=== PATIENT | female | born 1960 | race Caucasian/White ===

== ENCOUNTER 2020-11-07 20:06 | Emergency (ER) | payer OTHER, SELFPAY ==
[2020-11-07 20:24] VITALS: BP 139/51; PULSE 81; RESP 16; O2SAT 96; BMI 44.3
--- NOTE | 2020-11-07 23:23 | ED.SKABFB ---
HPI - Skin/Abscess/Foreign Bdy General Chief complaint: Skin/Abscess/Foreign Body Stated complaint: leg swelling Time Seen by Provider: 11/07/20 21:39 Source: patient Mode of arrival: ambulatory Limitations: no limitations History of Present Illness MD complaint: rash and lesion Onset (ago): day(s) (1) Location: LLE Severity: similar to previous episodes (feels like when she has had cellulitis in the past) Quality: aching Pain Consistency: constant Relieving factors: none Exacerbating factors: none Context: none Associated symptoms: denies other symptoms Treatments prior to arrival: none Related Data Previous Rx's Medication Instructions Recorded cephalexin 500 mg PO BID 7 Days #14 cap 11/08/20 doxycycline hyclate 100 mg PO BID 7 Days #14 cap 11/08/20 Allergies Allergy/AdvReac Type Severity Reaction Status Date / Time amitriptyline Allergy Unknown Verified 11/07/20 20:31 clonidine Allergy Unknown Verified 11/07/20 20:31 metformin Allergy Unknown Verified 11/07/20 20:31 niacin Allergy Unknown Verified 11/07/20 20:31 [From Niaspan Extended-Release] nortriptyline Allergy Unknown Verified 11/07/20 20:31 Penicillins Allergy Unknown Verified 11/07/20 20:31 sumatriptan [From Imitrex] Allergy Unknown Verified 11/07/20 20:31 tramadol Allergy Unknown Verified 11/07/20 20:31 Review of Systems Review of Systems: Constitutional : No Fever, No Chills ENT/Mouth : No sore throat, No Rhinorrhea Eyes: No Eye Pain, No Swelling, No Redness Cardiovascular : No Chest Pain, No SOB, pos LLE edema Respiratory : No Cough, No Sputum Gastrointestinal : No Nausea, No Vomiting, No Diarrhea, No abdominal Pain Genitourinary : No Dysuria, No Hematuria Musculoskeletal : No joint pain, No Myalgias, No Joint Swelling Skin : No Skin Lesions, positive skin rash Neuro : No Weakness, No Numbness, No Headache Psych : No Anxiety, No Depression Heme/Lymph: No Bruising, No Bleeding,No Lymphadenopathy Endocrine : No Polyuria, No Polydipsia All other systems reviewed and are negative PMFSH Past Medical History Attestation statement: The following information was validated with the patient. Medical History (Updated 11/08/20 @ 02:08 by Sweetie Mcgrath DO) Acute depression Anxiety Cellulitis Diabetes Fibromyalgia GERD (gastroesophageal reflux disease) Necrobiosis lipoidica PAD (peripheral artery disease) Social History Social History (Updated 11/07/20 @ 23:37 by Sweetie Mcgrath DO) Smoking Status: Current every day smoker Advance Directives: No Advance Directives Information Provided: No Physical Exam Vital Signs: Vital Signs: Last Vital Signs Pulse 81 11/07/20 20:24 Resp 16 11/07/20 20:24 BP 139/51 L 11/07/20 20:24 Pulse Ox 96 11/07/20 20:24 Body Mass Index 44.3 Appearance: Alert. Oriented X3. No acute distress. Eyes: Pupils equal, round and reactive to light. ENT: Pharynx normal. Neck: Normal inspection. Neck supple. CVS: Normal heart rate and rhythm. Pulses normal. Respiratory: No respiratory distress. Breath sounds normal. Abdomen: Soft and nontender. Skin: Skin warm and dry. Normal skin color. Normal skin turgor. Extremities: RLE no edema - chronic hyperpigmentation noted around lower part, LLE non pitting edema - 2 large scars noted from the prior necrosis but no open wounds - foot is warm to touch, sensation intact, compartments are soft and compressible lacy red rash noted around leg - no pustulues no fluctuance Neuro: Oriented X 3. No motor deficit. No sensory deficit. Course Course Course Narrative: afebrile, no WBC count, no fevers - unknown source of lactic acid, will hydrate and recheck no spread, feels better, lactic acid cleared MDM - Skin/Abscess/Foreign Bdy MDM Narrative Medical decision making narrative: 60 yo female with LLE chronic skin changes hx of necrobiosis lipoidica from what I can tell of her history - here with 1 day of LLE swelling, increased redness from baseline, no systemic symptoms - at this time will obtain labs, cultures, DVT study and start on IV antibiotics - she is not toxic, pending workup and findings may be suitable for outpatient oral management, NV intact (foot warm to touch) no pain out of proportion and compartments are soft and compressible Lab Data Result diagrams: 11/07/20 23:49 11/07/20 23:49 Labs: Lab Results 11/07/20 11/07/20 11/07/20 Range/Units 23:49 23:49 23:49 WBC 8.9 (4.8-10.8) X10*3/uL RBC 4.68 (4.20-5.50) X10*6/uL Hgb 14.6 (12.0-16.0) g/dl Hct 43.0 (37-47) % MCV 91.9 (80-98) fL MCH 31.2 (27.0-33.0) pg MCHC 34.0 (31.0-35.0) g/dl RDW 13.7 (11.0-16.0) % Plt Count 266 (160-400) X10*3/uL MPV 8.5 L (9.4-12.3) fL Immature Gran % (Auto) 0.7 H (0.0-0.4) % Neut % (Auto) 60.2 (45-73) % Lymph % (Auto) 31.4 (20-40) % [place] % (Auto) 4.7 (2-11) % Eos % (Auto) 2.4 (0-4) % Baso % (Auto) 0.6 (0-2) % Lymph # (Auto) 2.8 (1.2-4.9) X10*3/uL [place] # (Auto) 0.4 (0.1-1.2) X10*3/uL Eos # (Auto) 0.2 (0.0-0.4) X10*3/uL Baso # (Auto) 0.1 (0.0-0.2) X10*3/uL Abs Immat Gran (auto) 0.06 H (0.00-0.03) X10*3/uL Absolute Neuts (auto) 5.4 (2.0-8.3) X10*3/uL Absolute Nucleated RBC 0.000 (0.0-0.012) X10*3/uL Nucleated RBC % (auto) 0.0 (0.0-0.2) /100WBC Hold Blue Top SEE NOTE Sodium 141 (135-145) mmol/L Potassium 3.8 (3.3-5.1) mmol/l Chloride 102 (96-108) mmol/L Carbon Dioxide 27 (22-29) mmol/L Anion Gap 16 (12-20) BUN 9 (9-16) mg/dL Creatinine 0.97 (0.5-1.4) mg/dL Estim Creat Clear Calc 75.7 Estimated GFR 59 Random Glucose 229 H (60-115) mg/dL Lactic Acid (0.5-2.0) mmol/L Calcium 9.3 (8.4-10.2) mg/dL Total Bilirubin 0.7 (0.0-1.0) mg/dL AST 46 H (5-31) U/L ALT 35 H (0-31) U/L Alkaline Phosphatase 110 (39-117) U/L Total Protein 6.5 (6.5-8.0) g/dL Albumin 4.2 (3.5-5.0) g/dL 11/07/20 11/08/20 Range/Units 23:49 01:54 WBC (4.8-10.8) X10*3/uL RBC (4.20-5.50) X10*6/uL Hgb (12.0-16.0) g/dl Hct (37-47) % MCV (80-98) fL MCH (27.0-33.0) pg MCHC (31.0-35.0) g/dl RDW (11.0-16.0) % Plt Count (160-400) X10*3/uL MPV (9.4-12.3) fL Immature Gran % (Auto) (0.0-0.4) % Neut % (Auto) (45-73) % Lymph % (Auto) (20-40) % [place] % (Auto) (2-11) % Eos % (Auto) (0-4) % Baso % (Auto) (0-2) % Lymph # (Auto) (1.2-4.9) X10*3/uL [place] # (Auto) (0.1-1.2) X10*3/uL Eos # (Auto) (0.0-0.4) X10*3/uL Baso # (Auto) (0.0-0.2) X10*3/uL Abs Immat Gran (auto) (0.00-0.03) X10*3/uL Absolute Neuts (auto) (2.0-8.3) X10*3/uL Absolute Nucleated RBC (0.0-0.012) X10*3/uL Nucleated RBC % (auto) (0.0-0.2) /100WBC Hold Blue Top Sodium (135-145) mmol/L Potassium (3.3-5.1) mmol/l Chloride (96-108) mmol/L Carbon Dioxide (22-29) mmol/L Anion Gap (12-20) BUN (9-16) mg/dL Creatinine (0.5-1.4) mg/dL Estim Creat Clear Calc Estimated GFR Random Glucose (60-115) mg/dL Lactic Acid 2.5 H* 1.4 (0.5-2.0) mmol/L Calcium (8.4-10.2) mg/dL Total Bilirubin (0.0-1.0) mg/dL AST (5-31) U/L ALT (0-31) U/L Alkaline Phosphatase (39-117) U/L Total Protein (6.5-8.0) g/dL Albumin (3.5-5.0) g/dL Discharge Plan Discharge Clinical Impression: Acidosis, lactic Cellulitis Qualifiers: Site of cellulitis: extremity Site of cellulitis of extremity: lower extremity Laterality: left Qualified Code(s): L03.116 - Cellulitis of left lower limb Patient Disposition: Home, Self-Care Instructions: Cellulitis (ED) Additional Instructions: return to ED for any worsening symptoms or concerns return for increased redness, pain, swelling, drainage or if you feel the antibiotics are not working Prescriptions: New cephalexin 500 mg capsule 500 mg PO BID 7 Days Qty: 14 RF: 0 doxycycline hyclate 100 mg capsule 100 mg PO BID 7 Days Qty: 14 RF: 0 Referrals: Gregorio Farr MD [Primary Care Provider] - 2 days (wound check)
--- NOTE | 2020-11-07 23:33 | US_ITS ---
EXAMINATION: US VENOUS ULTRASOUND WITH DOPPLER LOWER EXTREMITY, LEFT CLINICAL INFORMATION: Left lower extremity pain and swelling COMPARISON: None TECHNIQUE: Ultrasound of the deep veins is performed from the hip to the calf with compression sonography and color and pulse Doppler assessment. Spectral analysis with color-flow imaging is performed. FINDINGS: There is normal venous compression and respiratory variation and augmented flow. The visualized common femoral vein, superficial femoral vein, profunda femoral vein, popliteal vein, and the trifurcation region shows no evidence of deep venous thrombosis. There is no significant popliteal fossa cyst. If the patient's symptoms persist, followup ultrasound in 5 days 7 days might be of value to exclude proximal propagation from a non-visualized calf vein. US/US venous duplex LE LT IMPRESSION: No DVT demonstrated in the left lower extremity.
--- NOTE | 2020-11-07 23:53 | PC.NURSE ---
PATIENT AWAY FOR ULTRASOUND. IV ACCESS ESTABLISHED IN LEFT AC (20 GAUGE). LABS DRAWN AND SENT TO ANALYSIS. AWAITING RESULTS.
[2020-11-08 00:01] LABS: MANUAL DIFF FLAG NO
[2020-11-08 00:08] LABS: Basophils Absolute Auto 0.1 X10*3/uL (0.0-0.2); Basophils Percent Auto 0.6 % (0-2); Eosinophils Absolute Auto 0.2 X10*3/uL (0.0-0.4); Eosinophils Percent Auto 2.4 % (0-4); Hemoglobin 14.6 g/dl (12.0-16.0); Imm Gran Abs Auto 0.06 X10*3/uL (0.00-0.03); Imm Gran Pct Auto 0.7 % (0.0-0.4); Lymphocytes Absolute Auto 2.8 X10*3/uL (1.2-4.9); Lymphocytes Percent Auto 31.4 % (20-40); Mean Corpuscular Hemoglobin 31.2 pg (27.0-33.0); Mean Corpuscular Volume 91.9 fL (80-98); Mean Platelet Volume 8.5 fL (9.4-12.3); Monocytes Absolute Auto 0.4 X10*3/uL (0.1-1.2); Monocytes Percent Auto 4.7 % (2-11); Neutrophils Absolute Auto 5.4 X10*3/uL (2.0-8.3); Neutrophils Percent Auto 60.2 % (45-73); Platelet Count 266 X10*3/uL (160-400); Red Blood Count 4.68 X10*6/uL (4.20-5.50); Red Cell Distribution Width 13.7 % (11.0-16.0); White Blood Count 8.9 X10*3/uL (4.8-10.8)
[2020-11-08 00:25] LABS: Alanine Aminotransferase 35 U/L (0-31); Albumin Level 4.2 g/dL (3.5-5.0); Alkaline Phosphatase 110 U/L (39-117); Anion Gap 16 (12-20); Aspartate Amino Transferase 46 U/L (5-31); Bilirubin Total 0.7 mg/dL (0.0-1.0); Blood Urea Nitrogen 9 mg/dL (9-16); Calcium 9.3 mg/dL (8.4-10.2); Carbon Dioxide 27 mmol/L (22-29); Chloride 102 mmol/L (96-108); Creatinine Clr Calc Pharmacy 75.7; Estimated Glomerular Filt Rate 59; Glucose Random 229 mg/dL (60-115); Potassium 3.8 mmol/l (3.3-5.1); Sodium 141 mmol/L (135-145); Total Protein 6.5 g/dL (6.5-8.0)
[2020-11-08 00:33] LABS: Lactic Acid 2.5 mmol/L (0.5-2.0)
[2020-11-08 00:45] VITALS: BP 126/46; PULSE 74; RESP 18; O2SAT 97
[2020-11-08] MEDS: cefEPime HCl 1 GM in 0.9 % Sodium Chloride 50 ML IV (00:45)
[2020-11-08] MEDS: 0.9 % Sodium Chloride 500 ML IV (00:45)
[2020-11-08 00:48] VITALS: BP 124/51; PULSE 74; RESP 18; O2SAT 97
[2020-11-08 01:03] VITALS: BP 118/48; PULSE 77; RESP 18; TEMP 36.7; O2SAT 96
--- NOTE | 2020-11-08 01:06 | PC.NURSE ---
PATIENT RECEIVING IV ANTIBIOTICS AT THIS TIME. PLAN TO REPEAT LACTIC ACID DRAW AT 01:49AM ORDERED. PER , PLAN TO EITHER DISCHARGE HOME OR ADMIT BASED ON REPEAT LACTIC ACID LEVEL. PATIENT AND PATIENT'S FAMILY UPDATED REGARDING THIS IN WAITING ROOM.
[2020-11-08 01:18] VITALS: BP 126/51; PULSE 78; RESP 18; O2SAT 97
[2020-11-08 01:33] VITALS: BP 105/42; PULSE 77; RESP 16; O2SAT 95
[2020-11-08 01:48] VITALS: BP 127/50; PULSE 80; RESP 18; O2SAT 97
--- NOTE | 2020-11-08 01:58 | PC.NURSE ---
REPEAT LACTIC ACID DRAWN AND SENT FOR ANALYSIS. AWAITING RESULTS.
[2020-11-08 01:59] LABS: Reflex Lactate? Lactic Acid Added
[2020-11-08 02:16] LABS: Lactic Acid 1.4 mmol/L (0.5-2.0)
== END 2020-11-08 02:50 | disposition home or self-care (01) ==
PROVIDERS: Emergency Provider Emergency Medicine; PCP Internal Medicine
DX: E87.2 Acidosis (principal); L03.116 Cellulitis of left lower limb; M79.605 Pain in left leg; I73.9 Peripheral vascular disease, unspecified; F17.200 Nicotine dependence, unspecified, uncomplicated
CPT/HCPCS: 36415; 80053; 83605; 85025; 87040; 93971; 96361; 96365; 99284; J0692